=== PATIENT | female | born 1995 | race Caucasian/White ===

== ENCOUNTER → 2016-08-05 | Outpatient (CLI) | payer OTHER ==
[~2016-08-05] MED LIST: ALBUTEROL17 GM
--- NOTE | ~2016-08-05 | CR172 ---
[facility] A Service of [place] [facility] RADIOLOGY TEXT RESULTS PATIENT: CHICO SANZ LOCATION: [facility] : [birth year] UNIT #: [id number] AGE: [address]: MARGARITA SERNA SEX: F ORDER DR: [id number] [facility] [address] [place], [place] [address] [id number] O MR#: [id number] Acc #: [id number] NAME: CHICO SANZ : 1995 SEX: F STUDY DATE/TIME: 08/05/2016 11:35 UNIT: [facility] ROOM: STUDY DESCRIPTION: CR Knee 3 Views Lt Attending Physician: Priti Charles Referring Physician: Priti Charles Primary Care Physician: Annika Allred M.D. MEDICAL IMAGING REPORT This report is preliminary unless electronic signature is present EXAM Left knee HISTORY Left knee pain for one month. FINDINGS AP lateral and sunrise views of the left knee were obtained. The bones and joint spaces are normal. There Is no effusion. IMPRESSION Normal left knee. Dictated by... Lui Velarde M.D. THIS IS AN ELECTRONICALLY VERIFIED REPORT Lui Velarde M.D. at 08/05/2016 4:55 PM ANABELLA/yany TD: 08/05/2016 15:19 JOB #: [id number] MEDICAL IMAGING REPORT COPY
== END | disposition home or self-care (01) ==
LOC: CRAD 11:16
DX: M25.562 Pain in left knee (principal)
CPT/HCPCS: 73562